=== PATIENT | male | born 1975 | race Two or more races ===

== ENCOUNTER 2016-04-17 21:31 | Emergency (ER) | payer OTHER ==
[2016-04-17] MEDS ORDERED: Morphine INJ* 4 MG/ML 1 ML CARPUJECT IV ONE (22:30)
[2016-04-17] MEDS ORDERED: Ondansetron INJ* 2 MG/ML VIAL IV ONE (22:30)
[2016-04-17] MEDS ORDERED: Ketorolac INJ* 30 MG/ML 1 ML VIAL IV PUSH ONE (22:31)
[2016-04-17 22:41] LABS: Hematocrit 44 % (42-52); Hemoglobin 14.7 g/dl (14.0-18.0); Mean Corpuscular HGB Conc 34 g/dl (31-36); Mean Corpuscular Hemoglobin 29 pg (27-31); Mean Corpuscular Volume 86 fL (80-94); Mean Platelet Volume 10 um3 (7.4-10.4); Red Blood Count 5.08 10^6/ul (4.0-5.4); Red Cell Distribution Width 13 % (10.5-15); White Blood Count 10.2 10^3/ul (3.5-10.8)
--- NOTE | 2016-04-17 22:59 | RAD ---
INDICATION: Left flank abdominal pain. COMPARISON: Comparison is made with a prior abdominal series from November 23, 2015. TECHNIQUE: A CT scan of the abdomen and pelvis was performed without intravenous or oral contrast. Contiguous axial sections were obtained from the lung bases through the symphysis pubis. Images were reconstructed in the coronal and sagittal planes. FINDINGS: There is mild dependent bilateral lower lobe subsegmental atelectasis. No pleural effusion is present. The liver is moderately enlarged and decreased in attenuation consistent with fatty infiltration. No significant focal abnormality is seen on this noncontrast study. The gallbladder is contracted. No calcified gallstones are seen. The spleen is mildly enlarged. There is a nodular density adjacent to the inferior medial aspect of the spleen most consistent with an accessory spleen. This measures 2.6 cm in size. The pancreas appears to be normal in size. No ductal distention is present. The adrenal glands and kidneys are normal in size. No renal calculi or hydronephrosis is seen. No ureteral or bladder calculi are seen. The aorta is normal in caliber without significant calcific plaque. No significant enlarged retroperitoneal lymph nodes are seen. The stomach, small and large bowel appear nondistended. The appendix is within normal limits. There is no evidence for diverticulitis or colitis. There is a small periumbilical hernia containing fat. No free intraperitoneal air or fluid is seen. No significant focal osseous abnormality is seen. IMPRESSION: 1. NO EVIDENCE FOR ACUTE INTRA-ABDOMINAL ABNORMALITY OR CAUSE FOR THE PATIENT'S ABDOMINAL PAIN IS SEEN. 2. HEPATOSPLENOMEGALY AND HEPATIC STEATOSIS.
[2016-04-17 23:00] LABS: Albumin 4.7 g/dL (3.2-5.2); BUN/Creatinine Ratio 15.6 (8-20); C Reactive Protein 7.89 mg/L (< 5.00); Calcium 9.7 mg/dL (8.6-10.3); EGFR African American 96.9 (>60); EGFR Non-African American 75.3 (>60); Globulin 3.2 g/dL (2-4); Potassium 4.3 mmol/L (3.5-5.0); Total Bilirubin 0.5 mg/dL (0.2-1.0); Total Protein 7.9 g/dL (6.4-8.9)
[2016-04-18 00:45] LABS: Urine Bilirubin Negative (Negative); Urine Glucose Negative (Negative); Urine Nitrite Negative (Negative)
[2016-04-18] MEDS ORDERED: traMADol TAB* 50 MG PO ONE (01:45)
[2016-04-18 02:17] VITALS: BP 106/60
--- NOTE | 2016-05-18 19:50 | ED ---
Master Burrell Janilya, scribed for Escobar Maravilla MD on 04/17/16 at 2235 . GI/ HPI - HPI Summary HPI Summary: A 40 y/o male [facility] presenting w/ a gradual onset of waxing and waning left-sided flank pain. Pt states that the pain severity changes throughout the day. However, he was not able to sleep last night due to the pain. Pt denies dysuria, hematuria, and other urinary problems. He also denies any recent trauma or injury. Pt states that he took two Tylenols with little relief. Nothing makes the pain better or worse. Pt was seen at [facility] a few hours ago and was diagnosed with a possible kidney stone. No PMHx of kidney stones. PMHx HTN, for which pt takes medication. SHx occasional EtOH use. - History of Current Complaint Chief Complaint: EDFlankPain Time Seen by Provider: 04/17/16 22:15 Stated Complaint: FLANK PAIN-SENT FROM [facility] Hx Obtained From: Patient Onset/Duration: Started Days Ago, Atraumatic, Still Present Timing: Intermittent Severity: Moderate Current Severity: Moderate Pain Intensity: 8 Location of Pain: Flank Pain Characteristics: Sharp Associated Signs and Symptoms: Positive: Flank Pain Aggravating Factor(s): Nothing Alleviating Factor(s): Nothing - Allergy/Home Medications Allergies/Adverse Reactions: Allergies Allergy/AdvReac Type Severity Reaction Status Date / Time No Known Allergies Allergy Verified 11/23/15 19:14 PMH/Surg Hx/FS Hx/Imm Hx Previously Healthy: Yes Cardiovascular History: Reports: Hx Hypertension GI History: Reports: Other GI Disorders - lactose intolerance Psychiatric History: Reports: Hx Anxiety, Hx Depression Infectious Disease History: No Infectious Disease History: Reports: Traveled Outside the [place] in Last 30 Days - [place] - Family History Known Family History: Positive: Other - celiac disease-mother, no FHx of kidney stones - Social History Alcohol Use: Occasionally Hx Substance Use: No Substance Use Type: Reports: None Smoking Status (MU): Unknown if Ever Smoked Review of Systems Negative: Fever, Chills Negative: Erythema Negative: Sore Throat Negative: Chest Pain Negative: Shortness Of Breath, Cough Negative: Abdominal Pain, Vomiting, Nausea Positive: flank pain. Negative: dysuria, hematuria Negative: Myalgia, Edema Negative: Rash Neurological: Negative - (-) dizziness All Other Systems Reviewed And Are Negative: Yes Physical Exam - Summary Physical Exam Summary: Constitutional: Well-developed, Well-nourished, Alert. (-) Distressed Skin: Warm, Dry HENT: Normocephalic; Atraumatic Eyes: Conjunctiva normal Neck: Musculoskeletal ROM normal neck. (-) JVD, (-) Stridor, (-) Tracheal deviation Cardio: Rhythm regular, rate normal, Heart sounds normal; Intact distal pulses; The pedal pulses are 2+ and symmetric. Radial pulses are 2+ and symmetric. (-) Murmur Pulmonary/Chest wall: Effort normal. (-) Respiratory distress, (-) Wheezes, (-) Rales Abd: Soft, (-) Tenderness, (-) Distension, (-) Guarding, (-) Rebound Musculoskeletal: (-) Edema, mild CVA tenderness Lymph: (-) Cervical adenopathy Neuro: Alert, Oriented x3 Psych: Mood and affect Normal Triage Information Reviewed: Yes Vital Signs On Initial Exam: Initial Vitals Temp Pulse Resp BP Pulse Ox 97.7 F 64 18 149/93 99 04/17/16 21:36 04/17/16 21:36 04/17/16 21:36 04/17/16 21:36 04/17/16 21:36 Vital Signs Reviewed: Yes Diagnostics - Vital Signs Vital Signs Temp Pulse Resp BP Pulse Ox 04/17/16 21:36 97.7 F 64 18 149/93 99 - Laboratory Result Diagrams: 04/17/16 22:21 04/17/16 22:21 Lab Statement: Any lab studies that have been ordered have been reviewed, and results considered in the medical decision making process. - CT abd/pel CT Interpretation: Positive (See Comments) - IMPRESSION: 1. NO EVIDENCE FOR ACUTE INTRA-ABDOMINAL ABNORMALITY OR CAUSE FOR THE PATIENT'S ABDOMINAL PAIN IS SEEN. 2. HEPATOSPLENOMEGALY AND HEPATIC STEATOSIS. CT Interpretation Completed By: Radiologist CHANDANA Course/Dx - Course Course Of Treatment: Pain is reproducible with movement. There is no evidence of kidney stones or pyelonephritis. Recommended symptomatic management. - Diagnoses Differential Diagnoses - Male: Pyelonephritis, Renal Calculi, Other - muscle strain Provider Diagnoses: Low back pain Discharge - Discharge Plan Condition: Stable Disposition: HOME Patient Education Materials: Flank Pain (ED) Referrals: No Primary Care Phys,NOPCP [Primary Care Provider] - [facility]FERR[facility] [Outside] Additional Instructions: Follow up with your primary care provider within 2 days. The documentation as recorded by the Master barnett Janilya accurately reflects the service I personally performed and the decisions made by me, Escobar Maravilla MD.
== END 2016-04-18 02:17 | disposition home or self-care (01) ==
LOC: ED 21:31
DX: N28.89 Other specified disorders of kidney and ureter (principal)
CPT/HCPCS: 36415; 74176; 80053; 81003; 82150; 83605; 83690; 85025; 86140; 96374; 96375; 99283; A9270-GY; J1885; J2270; J2405